=== PATIENT | male | born 1990 | race Caucasian/White ===

== ENCOUNTER 2020-11-11 02:17 | Emergency (ER) | payer OTHER ==
[~2020-11-11] VITALS: Ht 188 cm; Wt 171.5 kg
[2020-11-11 02:33] VITALS: Ht 188 cm; Wt 171.5 kg
[2020-11-11 04:01] LABS: BASOPHIL % 0.4 % (0.2-1.5); PLATELET COUNT 240 x10^3mcL (152-348); RED CELL DISTRIBUTION WIDTH 13.7 % (12.1-16.2)
[2020-11-11] MEDS ORDERED: FLOMAX0.4 MG PO (04:02)
[2020-11-11] MEDS ORDERED: MOT600 PO (04:02)
[2020-11-11 04:10] LABS: CALCIUM 9.1 mg/dL (8.5-10.1); CARBON DIOXIDE 28.2 mmol/L (21-32); CHLORIDE SERUM 102 mmol/L (98-107); CREATININE SERUM 0.9 mg/dL (0.7-1.3); GFR1 > 60 mL/min; GLUCOSE SERUM 166 mg/dL (74-106); POTASSIUM SERUM 3.9 mmol/L (3.5-5.1); SODIUM SERUM 137 mmol/L (136-145)
[2020-11-11 04:15] LABS: ALBUMIN 3.5 g/dL (3.4-5.0); ALKALINE PHOSPHATASE 114 U/L (46-116); ALT/SGPT 40 U/L (16-63); AST/SGOT 20 U/L (15-37); BILIRUBIN TOTAL 0.2 mg/dL (0.20-1.00); TOTAL PROTEIN, SERUM 7.6 g/dL (6.4-8.2)
[2020-11-11 04:38] VITALS: BP 121/45
== END 2020-11-11 04:38 | disposition home or self-care (01) ==
LOC: ED 02:17
PROVIDERS: Emergency Medicine
DX: N23 Unspecified renal colic (principal); E11.9 Type 2 diabetes mellitus without complications
CPT/HCPCS: J1885; J7030